=== PATIENT | male | born 1995 | race Caucasian/White ===

== ENCOUNTER 2018-02-10 00:47 | Emergency (ER) | payer OTHER ==
--- NOTE | 2018-02-10 01:44 | ED ---
Laceration/Wound HPI - HPI Summary HPI Summary: 22-year-old male presents with left pinky laceration today. He states he cut it on a straight razor. The area is not actively bleeding. His last tetanus was a week ago. Denies any numbness tingling. Full range of motion his finger. Is right-handed. Is a student at [employer]. no medical conditions. - History of Current Complaint Stated Complaint: LT PINKY FINGER LAC Time Seen by Provider: 02/10/18 01:24 Pain Intensity: 0 - Allergy/Home Medications Allergies/Adverse Reactions: Allergies Allergy/AdvReac Type Severity Reaction Status Date / Time No Known Allergies Allergy Verified 02/10/18 00:52 PMH/Surg Hx/FS Hx/Imm Hx Endocrine/Hematology History: Denies: Hx Anticoagulant Therapy Respiratory History: Denies: Hx Asthma - Immunization History Date of Tetanus Vaccine: 2017 Immunizations Up to Date: Yes Infectious Disease History: No Infectious Disease History: Denies: Traveled Outside the [place] in Last 30 Days - Family History Known Family History: Negative: Diabetes - Social History Alcohol Use: Occasionally Substance Use Type: Reports: None Smoking Status (MU): Never Smoked Tobacco Review of Systems Negative: Fever Negative: Chest Pain Negative: Shortness Of Breath Positive: Other - lac left pinky All Other Systems Reviewed And Are Negative: Yes Physical Exam Triage Information Reviewed: Yes Vital Signs On Initial Exam: Initial Vitals Temp Pulse Resp BP Pulse Ox 97.9 F 61 16 140/96 100 02/10/18 00:49 02/10/18 00:49 02/10/18 00:49 02/10/18 00:49 02/10/18 00:49 Vital Signs Reviewed: Yes Appearance: Positive: Well-Appearing Skin: Positive: Warm, Dry, Other - 1cm flap like laceration of proximal phalanx left pinky finger Head/Face: Positive: Normal Head/Face Inspection Eyes: Positive: Normal, Conjunctiva Clear ENT: Positive: Pharynx normal Respiratory/Lung Sounds: Positive: Clear to Auscultation, Breath Sounds Present Cardiovascular: Positive: Normal, RRR Musculoskeletal: Positive: Strength/ROM Intact - left pinky finger, Other - good pulses, capillary refill<2 secs, sensation grossly intact Neurological: Positive: Normal Psychiatric: Positive: Normal Procedures - Laceration/Wound Repair 1 Location: Other - left pinky finger Description: Irregular Length, Depth and Shape: 1cm superficial flap like laceration Irrigated w/ Saline (ccs): 100 Closure: Skin Adhesive, SteriStrips Diagnostics - Vital Signs Vital Signs Temp Pulse Resp BP Pulse Ox 02/10/18 00:49 97.9 F 61 16 140/96 100 - Laboratory Lab Statement: Any lab studies that have been ordered have been reviewed, and results considered in the medical decision making process. Laceration Repair Course/Dx - Course Course Of Treatment: 22-year-old male presents with left pinky laceration today. He states he cut it on a straight razor. The area is not actively bleeding. His last tetanus was a week ago. Denies any numbness tingling. Full range of motion his finger. Is right-handed. Is a student at [employer]. no medical conditions. On exam has one centimeters superficial flap-like laceration of left pinky finger at the proximal phalanx. Neurovascular intact. Cleaned area and place glued and Steri-Stripped. Patient understands agrees with plan. - Differential Dx Differental Diagnoses: Abrasion, Avulsion, Laceration - Clinical Impression Provider Diagnoses: Laceration of left little finger Discharge - Sign-Out/Discharge Documenting (check all that apply): Patient Departure - Discharge Plan Condition: Good Disposition: HOME Patient Education Materials: Skin Adhesive Care (ED) Referrals: No Primary Care Phys,NOPCP [Primary Care Provider] - Additional Instructions: Take Tylenol or ibuprofen for pain as needed every 6 hours Keep dry for 24 hours Glue will fall off on own Avoid scrubbing area Return to ED if develop any signs of infection or any new or worsening symptoms - Billing Disposition and Condition Condition: GOOD Disposition: Home
[2018-02-10 02:00] VITALS: BP 135/80
== END 2018-02-10 01:59 | disposition home or self-care (01) ==
LOC: ED 00:47
DX: S61.217A Laceration without foreign body of left little finger without damage to nail, initial encounter (principal); W26.8XXA Contact with other sharp object(s), not elsewhere classified, initial encounter; Y92.9 Unspecified place or not applicable
CPT/HCPCS: 12001; 99281

== ENCOUNTER 2018-10-28 12:11 | Emergency (ER) | payer OTHER ==
[2018-10-28 15:06] LABS: ABS Basophils 0.1 10^3/ul (0-0.2); ABS Eosinophils 0.3 10^3/ul (0-0.6); ABS Lymphocytes 1.9 10^3/ul (1.0-4.8); ABS Monocytes 0.7 10^3/ul (0-0.8); ABS Neutrophils 2.8 10^3/ul (1.5-7.7); Eosinophil % 4.7 %; Hematocrit 44 % (42-52); Hemoglobin 14.7 g/dL (14.0-18.0); Lymphocyte % 33.3 %; Mean Corpuscular HGB Conc 33 g/dL (31-36); Mean Corpuscular Hemoglobin 27 pg (27-31); Mean Corpuscular Volume 81 fL (80-94); Mean Platelet Volume 7.5 fL (7.4-10.4); Nucleated Red Blood Cells % 0.1; Platelet Count 274 10^3/uL (150-450); Red Blood Count 5.49 10^6 /uL (4.18-5.48); Red Cell Distribution Width 13 % (10.5-15); White Blood Count 5.6 10^3/uL (3.5-10.8)
[2018-10-28 15:16] LABS: ALT 12 U/L (7-52); AST 12 U/L (13-39); Albumin 4.6 g/dL (3.2-5.2); Albumin/Globulin Ratio 1.5 (1-3); Alkaline Phosphatase 48 U/L (34-104); Amylase 29 U/L (29-103); Anion Gap 5 mmol/L (2-11); BUN/Creatinine Ratio 15.6 (8-20); Blood Urea Nitrogen 14 mg/dL (6-24); C Reactive Protein < 1.00 mg/L (<8.01); CO2 Carbon Dioxide 30 mmol/L (22-32); Calcium 9.6 mg/dL (8.6-10.3); Chloride 105 mmol/L (101-111); EGFR African American 126.5 (>60); EGFR Non-African American 104.6 (>60); Glucose 102 mg/dL (70-100); Potassium 4.2 mmol/L (3.5-5.0); Sodium 140 mmol/L (135-145); Total Protein 7.6 g/dL (6.4-8.9)
[2018-10-28 16:25] LABS: Urine Appearance Cloudy; Urine Bilirubin Negative (Negative); Urine Blood Negative (Negative); Urine Color Yellow; Urine Glucose Negative (Negative); Urine Ketones Negative (Negative); Urine Nitrite Negative (Negative); Urine Protein Negative (Negative); Urine Specific Gravity 1.027 (1.010-1.030); Urine Urobilinogen Negative (Negative)
--- NOTE | 2018-10-28 16:27 | ED ---
Abdominal Pain/Male - HPI Summary HPI Summary: The patient is a 23 y/o M presenting to [facility] with a chief complaint of gradual onset RLQ pain starting four days ago. He states that five days ago, he became intoxicated, and then he started having abdominal soreness the next day. He additionally started to have intermittent episodes of nausea and vomiting. He denies fever and diarrhea. The pain is currently rated 2/10, but when it is worse, it is rated 4/10 in severity. No PMHx or surgical hx. - History of Current Complaint Chief Complaint: EDAbdPain Stated Complaint: ABD PAIN PER PT Time Seen by Provider: 10/28/18 16:19 Hx Obtained From: Patient Onset/Duration: Gradual Onset, Lasting Days - four, Still Present Timing: Lasting Days Severity Initially: Mild Severity Currently: Moderate Pain Intensity: 4 Pain Scale Used: 0-10 Numeric Location: Discrete At: RLQ Radiates: No Character: Dull Aggravating Factor(s): Nothing Alleviating Factor(s): Nothing Associated Signs And Symptoms: Positive: Nausea, Vomiting. Negative: Fever, Diarrhea - Allergies/Home Medications Allergies/Adverse Reactions: Allergies Allergy/AdvReac Type Severity Reaction Status Date / Time No Known Allergies Allergy Verified 10/28/18 12:14 Home Medications: Home Medications NK [No Home Medications Reported] 10/28/18 [History Confirmed 10/28/18] PMH/Surg Hx/FS Hx/Imm Hx Endocrine/Hematology History: Denies: Hx Anticoagulant Therapy Respiratory History: Denies: Hx Asthma - Surgical History Surgery Procedure, Year, and Place: none - Immunization History Date of Tetanus Vaccine: 2018 Infectious Disease History: No Infectious Disease History: Denies: Traveled Outside the [place] in Last 30 Days - Family History Known Family History: Positive: Diabetes - Social History Alcohol Use: Occasionally Hx Substance Use: No Substance Use Type: Reports: None Hx Tobacco Use: No Smoking Status (MU): Never Smoked Tobacco Do You Chew or Dip Tobacco: No Have You Chewed or Dipped Tobacco in the LAST YEAR: No Have You Smoked in the Last Year: No Review of Systems Negative: Fever Positive: Abdominal Pain - RLQ, Vomiting, Nausea, Other - NEGATIVE: diarrhea All Other Systems Reviewed And Are Negative: Yes Physical Exam - Summary Physical Exam Summary: VITAL SIGNS: Reviewed. GENERAL: Patient is a well-developed and nourished male who is lying comfortable in the stretcher. Patient is not in any acute respiratory distress. HEAD AND FACE: Normocephalic and atraumatic. EYES: PERRLA, EOMI x 2, No injected conjunctiva. EARS: Hearing grossly intact. Ear canals and tympanic membranes are WNL. MOUTH: Oropharynx within normal limits. NECK: Supple, trachea is midline, no adenopathy, no JVD. CHEST: Symmetric, no tenderness at palpation LUNGS: Clear to auscultation bilaterally. No wheezing or crackles. CVS: RRR, S1 and S2 present, no murmurs or gallops appreciated. ABDOMEN: Soft, RLQ tenderness. No signs of distention. Positive bowel sounds. No rebound no guarding, and no masses palpated. No abdominal bruit or pulsations. : No testicular masses. EXTREMITIES: FROM in all major joints, no edema, no cyanosis or clubbing. NEURO: Alert and oriented x 3. No acute neurological deficits. Speech is normal. SKIN: Dry and warm Triage Information Reviewed: Yes Vital Signs On Initial Exam: Initial Vitals Temp Pulse Resp BP Pulse Ox 98.2 F 71 15 132/90 99 10/28/18 12:13 10/28/18 12:13 10/28/18 12:13 10/28/18 12:13 10/28/18 12:13 Vital Signs Reviewed: Yes Diagnostics - Vital Signs Vital Signs Temp Pulse Resp BP Pulse Ox 10/28/18 14:22 98.6 F 68 17 127/89 99 10/28/18 12:13 98.2 F 71 15 132/90 99 - Laboratory Lab Results: Lab Results 10/28/18 10/28/18 10/28/18 Range/Units 14:51 14:51 14:51 WBC 5.6 (3.5-10.8) 10^3/uL RBC 5.49 H (4.18-5.48) 10^6 /uL Hgb 14.7 (14.0-18.0) g/dL Hct 44 (42-52) % MCV 81 (80-94) fL MCH 27 (27-31) pg MCHC 33 (31-36) g/dL RDW 13 (10.5-15) % Plt Count 274 (150-450) 10^3/uL MPV 7.5 (7.4-10.4) fL Neut % (Auto) 49.2 % Lymph % (Auto) 33.3 % Knox % (Auto) 11.7 % Eos % (Auto) 4.7 % Baso % (Auto) 1.1 % Absolute Neuts (auto) 2.8 (1.5-7.7) 10^3/ul Absolute Lymphs (auto) 1.9 (1.0-4.8) 10^3/ul Absolute Monos (auto) 0.7 (0-0.8) 10^3/ul Absolute Eos (auto) 0.3 (0-0.6) 10^3/ul Absolute Basos (auto) 0.1 (0-0.2) 10^3/ul Absolute Nucleated RBC 0.0 10^3/ul Nucleated RBC % 0.1 Sodium 140 (135-145) mmol/L Potassium 4.2 (3.5-5.0) mmol/L Chloride 105 (101-111) mmol/L Carbon Dioxide 30 (22-32) mmol/L Anion Gap 5 (2-11) mmol/L BUN 14 (6-24) mg/dL Creatinine 0.90 (0.67-1.17) mg/dL Est GFR ( Amer) 126.5 (>60) Est GFR (Non-Af Amer) 104.6 (>60) BUN/Creatinine Ratio 15.6 (8-20) Glucose 102 H (70-100) mg/dL Lactic Acid 0.8 (0.5-2.0) mmol/L Calcium 9.6 (8.6-10.3) mg/dL Total Bilirubin 1.40 H (0.2-1.0) mg/dL AST 12 L (13-39) U/L ALT 12 (7-52) U/L Alkaline Phosphatase 48 (34-104) U/L C-Reactive Protein < 1.00 (<8.01) mg/L Total Protein 7.6 (6.4-8.9) g/dL Albumin 4.6 (3.2-5.2) g/dL Globulin 3.0 (2-4) g/dL Albumin/Globulin Ratio 1.5 (1-3) Amylase 29 (29-103) U/L Lipase 19 (11.0-82.0) U/L Result Diagrams: 10/28/18 14:51 10/28/18 14:51 Lab Statement: Any lab studies that have been ordered have been reviewed, and results considered in the medical decision making process. - CT Abd/Pel CT CT Interpretation Completed By: Radiologist Summary of CT Findings: Normal appendix. No other masses or fluid collections are noted. No evidence of obstructive uropathy is noted. ED physician has reviewed this report. - Ultrasound No standard instances Ultrasound Interpretation Completed By: Radiologist Summary of Ultrasound Findings: Gallbladder US: Partially contracted gallbladder with no evidence of biliary duct dilatation. ED physician has reviewed this report. Re-Evaluation - Re-Evaluation First Eval Re-Evaluation Time: 17:40 Change: Unchanged Comment: I spoke with the patient concerning results and discharge home. Abdominal Pain Male Course/Dx - Course Assessment/Plan: The patient is a 23 y/o M presenting to [facility] with a chief complaint of gradual onset RLQ pain starting four days ago. He states that five days ago, he became intoxicated, and then he started having abdominal soreness the next day. He additionally started to have intermittent episodes of nausea and vomiting. He denies fever and diarrhea. The pain is currently rated 2/10, but when it is worse, it is rated 4/10 in severity. No PMHx or surgical hx. Physical exam shows no hernias and there is no testicular masses or tenderness. Blood test results without any significant abnormality except for glucose of 102 , total bili 1.4 and AST is 12. Urinalysis is negative for UTI. Abdomen CT impression: Normal appendix. No other masses or fluid collections are noted. No evidence of obstructive uropathy is noted. In the ED course the patient was given Toradol and IV fluids any help with the pain. This point the patient is feeling better. CT shows no appendicitis therefore the patient will be discharged home with follow-up with primary care physician. I discussed all the findings and test results with the patient. Patient was instructed to return to the emergency room immediately if any of the symptoms return worsens. Plan of care was discussed with the patient and understands and agrees. All questions were answered at patient satisfaction. There were no further complaints or concerns. Lung exam before discharge: CTA B/L. Good air exchange. No wheezing or crackles heard. CVS: S1 and S2 present. No murmurs appreciated. Patient is alert and oriented x 3. Patient is hemodynamically stable. Patient will be discharged home with follow up PCP in the next 2-3 days. - Diagnoses Differential Diagnosis/HQI/PQRI: Appendicitis, Bowel Obstruction, Constipation, Diverticulitis, Ureteral Stone, Urinary Tract Infection Provider Diagnoses: Lower abdominal pain Discharge - Sign-Out/Discharge Documenting (check all that apply): Patient Departure - Patient will be discharged home. Patient Received Moderate/Deep Sedation with Procedure: No - Discharge Plan Condition: Stable Disposition: HOME Patient Education Materials: Acute Abdominal Pain (DC) Referrals: [facility] [place] [facility] REFERRAL [Outside] - 3 Days Additional Instructions: FOLLOW UP WITH YOUR PRIMARY CARE PROVIDER WITHIN ONE WEEK. RETURN TO THE ED FOR ANY WORSENING OR NEW SYMPTOMS. - Billing Disposition and Condition Condition: STABLE Disposition: Home - Attestation Statements Document Initiated by Chey[place]: Yes Documenting Scribe: Kimberli Loo Provider For Whom Cheyenne is Documenting (Include Credential): Dr. Alek Muñoz MD Scribe Attestation: Kimberli Garcia scribed for Dr. Alek Muñoz MD on 10/29/18 at 2130. Scribe Documentation Reviewed: Yes Provider Attestation: The documentation as recorded by the Kimberli john accurately reflects the service I personally performed and the decisions made by me, Dr. Alek Muñoz MD Status of Scribe Document: Viewed
[2018-10-28] MEDS ORDERED: Iohexol 300* (CONTRAST) 10 ML SDV IV ONE (16:31)
[2018-10-28] MEDS ORDERED: Ketorolac INJ* 30 MG/ML 1 ML VIAL IV PUSH ONE (17:33)
[2018-10-28 17:57] VITALS: BP 132/68
== END 2018-10-28 17:56 | disposition home or self-care (01) ==
LOC: ED 12:11
DX: R10.31 Right lower quadrant pain (principal); K82.0 Obstruction of gallbladder
CPT/HCPCS: 36415; 74177; 76705; 80053; 81003; 82150; 83605; 83690; 85025; 86140; 96374; 99282; Q9967